=== PATIENT | female | born 2000 | race Caucasian/White ===

== ENCOUNTER 2022-01-27 02:32 | Outpatient (CLI) | payer OTHER | END 2022-01-27 03:47 | disposition home or self-care (01) | LOC: GENOP 02:32 | DX: O42.12 Full-term premature rupture of membranes, onset of labor more than 24 hours following rupture (principal); Z3A.38 38 weeks gestation of pregnancy | CPT/HCPCS: 84112; G0463 ==

== ENCOUNTER 2022-02-01 10:32 | Outpatient (CLI) | payer OTHER ==
[2022-02-03] MEDS ORDERED: ZOLOFT50 MG PO (10:39)
[2022-02-03] MEDS ORDERED: LEVOTHYROXINE88 MC1 PO (10:39)
[2022-02-03] MEDS ORDERED: COLACE 100MG C100 MG PO (16:56)
[2022-02-03] MEDS ORDERED: HYDROCODON-ACE1 EAC4 PO (16:56)
[2022-02-03] MEDS ORDERED: IBUPROFEN800 MG PO (16:56)
[2022-02-04] MEDS ORDERED: FERROUS SULFAT325 MG PO (09:03)
== END 2022-02-01 13:25 | disposition home or self-care (01) ==
LOC: GENOP 10:32
DX: O47.03 False labor before 37 completed weeks of gestation, third trimester (principal); Z3A.38 38 weeks gestation of pregnancy
CPT/HCPCS: 81001; G0463

== ENCOUNTER 2022-02-01 20:02 | Outpatient (CLI) | payer OTHER ==
[2022-02-03] MEDS ORDERED: ZOLOFT50 MG PO (10:39)
[2022-02-03] MEDS ORDERED: LEVOTHYROXINE88 MC1 PO (10:39)
[2022-02-03] MEDS ORDERED: COLACE 100MG C100 MG PO (16:56)
[2022-02-03] MEDS ORDERED: IBUPROFEN800 MG PO (16:56)
[2022-02-03] MEDS ORDERED: HYDROCODON-ACE1 EAC4 PO (16:56)
[2022-02-04] MEDS ORDERED: FERROUS SULFAT325 MG PO (09:03)
== END 2022-02-01 22:40 | disposition home or self-care (01) ==
LOC: GENOP 20:02
DX: O47.03 False labor before 37 completed weeks of gestation, third trimester (principal); Z3A.38 38 weeks gestation of pregnancy
CPT/HCPCS: 96360